=== PATIENT | male | born 1995 | race Caucasian/White ===

== ENCOUNTER 2017-05-25 03:09 | Emergency (ER) | payer OTHER ==
[~2017-05-25] VITALS: Ht 193 cm; Wt 103.9 kg
[2017-05-25 03:17] VITALS: TEMP 36.5; O2SAT 98; Ht 193 cm; Wt 103.9 kg
[2017-05-25 04:14] LABS: BUN/CREATININE RATIO 13.5 (10-20); CALCIUM 8.4 mg/dl (8.5-10.1); CREATININE 0.78 mg/dl (0.60-1.40); POTASSIUM 3.6 mmol/L (3.5-5.1)
[2017-05-25 06:20] VITALS: BP 110/60; PULSE 60; O2SAT 95
--- NOTE | 2017-05-25 06:29 | EMERGENCY ROOM VISIT NOTE ---
History Report prepared by Daniel: Ute Avery Under the Supervision of: Dr. Palma Cruz D.O. First contact with patient: 03:10 Chief Complaint: ALCOHOL OVERDOSE Stated Complaint: ALCOHOL OVERDOSE History of Present Illness The patient is a 22 year old male who presents to the Emergency Room with complaints of an episode of alcohol overdose occurring tonight. Per EMS, the patient was found asleep in the grass by the [employer]. They report that he is unsure of how he got there. They note that he vomited a few times. The patient states that the scratch on his left leg is from intramural football. He notes that he was drinking at [facility]. He denies smoking and taking any drugs. HPI is limited secondary to alcohol intoxication. Source of History: patient, EMS History Limited By: intoxication Onset: tonight Position: other (global) Quality: other (global) Timing: other (episode) Associated Symptoms: + vomiting Review of Systems See HPI for pertinent positives & negatives. A total of 10 systems reviewed and were otherwise negative. Past Medical & Surgical Medical Problems: (1) No Known Active Medical Problems Family History No pertinent family history Social History Smoking Status: Never Smoker Alcohol Use: occasionally Drug Use: none Marital Status: single Housing Status: lives with roommate Occupation Status: [employer] student Current/Historical Medications Unable to Obtain Active Prescriptions or Reported Meds Allergies Coded Allergies: No Known Allergies (Unverified , 09/03/15) Physical Exam Vital Signs Date Time Temp Pulse Resp B/P (MAP) Pulse Ox O2 Delivery O2 Flow Rate FiO2 05/25/17 06:20 60 18 110/60 95 Room Air 05/25/17 05:37 53 18 124/58 96 Room Air 05/25/17 04:35 59 18 117/64 96 Room Air 05/25/17 03:17 36.5 86 20 137/88 97 Room Air 05/25/17 03:17 98 Room Air 05/25/17 03:15 86 Physical Exam General: Pleasant, cooperative, smells of alcohol. HEENT: Head - normocephalic and atraumatic Pupils are equal, round, 4 mm and reactive to light. Extraocular eye muscles are intact, and sclera are anicteric. Nose - moist nasal mucosa without discharge. Mouth - moist buccal mucosa. Oropharynx is nonerythematous and there is no tonsillar exudate or edema noted. Neck: Supple; no JVD, nuchal rigidity, cervical lymphadenopathy. Heart: Regular rate and rhythm. There is a normal S1 and S2 with no murmurs, clicks, or gallops appreciated. Lungs: Clear to auscultation bilaterally with no wheezes, rales, or rhonchi. Abdomen: Soft, completely nontender, nondistended, with good bowel sounds. There are no palpable pulsatile masses or hepatosplenomegaly. There is no guarding, rigidity, or rebound noted. Extremities: No evidence of cyanosis, clubbing, or edema. There are easily palpable peripheral pulses. Abrasion on left lateral leg. Skin: warm and dry with good turgor and no rashes. Medical Decision & Procedures Laboratory Results 05/25/17 03:43 Test 05/25/17 03:43 Anion Gap 11.0 mmol/L (3-11) Est Creatinine Clear Calc Drug Dose 183.8 ml/min Estimated GFR () 149.6 Estimated GFR (Non- 129.0 BUN/Creatinine Ratio 13.5 (10-20) Calcium Level 8.4 mg/dl (8.5-10.1) Ethyl Alcohol mg/dL 199.0 mg/dl (0-3) Laboratory results per my review. ED Course 0311: Past medical records reviewed. The patient was evaluated in room A11A. A complete history and physical exam was performed. Laboratory studies were drawn as above. The patient was placed in the prone position to avoid aspiration. He was observed on the monitoring analyst and pulse oximeter. 0417: I reevaluated the patient and he was sleeping. His vitals are stable. 0523: I reevaluated the patient and he is sound asleep. He is hemodynamically stable. 0630: The patient was easily arousable. I spent some time talking to him about the hazards of such excessive alcohol use. I encouraged him to avoid drinking that much in the future. Medical Decision The patient is a 22 year old male who presents to the Emergency Room with complaints of an episode of alcohol overdose occurring tonight. Differential diagnoses include alcohol overdose, drug intoxication, head injury , hypoglycemia. LABS: Alcohol 199 Normal renal function Normal glucose This is a 22-year-old male patient who presents to the emergency department after consuming too much alcohol. He was cooperative while here in the ER. He was observed until he was more sober and then was discharged home. He had urinated himself while here in the ER. He was encouraged to avoid drinking that much in the future Impression Primary Impression: Alcohol overdose Scribe Attestation The scribe's documentation has been prepared under my direction and personally reviewed by me in its entirety. I confirm that the note above accurately reflects all work, treatment, procedures, and medical decision making performed by me. Departure Information Dispostion Home / Self-Care Prescriptions Unable to Obtain Active Prescriptions or Reported Meds Referrals No Doctor, Assigned (PCP) Forms HOME CARE DOCUMENTATION FORM, IMPORTANT VISIT INFORMATION Patient Instructions My [facility] Additional Instructions Rest. Take plenty of clear liquids today. Avoid such excessive alcohol use in the future Use tylenol for headache Problem Qualifiers Primary Impression: Alcohol overdose Encounter type: initial encounter Injury intent: accidental or unintentional Qualified Codes: T51.91XA - Toxic effect of unspecified alcohol , accidental (unintentional), initial encounter
== END 2017-05-25 06:53 | disposition home or self-care (01) ==
LOC: EDBD 03:09 → C.EDA 03:10
DX: T51.91XA Toxic effect of unspecified alcohol, accidental (unintentional), initial encounter (principal); X58.XXXA Exposure to other specified factors, initial encounter; Y90.6 Blood alcohol level of 120-199 mg/100 ml